=== PATIENT | male | born 2000 | race Native Hawaiian/Other Pacific Islander ===

== ENCOUNTER → 2020-11-11 | Emergency (ER) | payer OTHER ==
[~2020-11-11] VITALS: Ht 172.7 cm; Wt 68.2 kg
[~2020-11-11] MED LIST: CEPHALEXIN500 M1 PO
[2020-11-11 07:15] VITALS: BP 134/84; PULSE 78; TEMP 98.4
== END ==
LOC: COL.ER 07:08
DX: S60.352A Superficial foreign body of left thumb, initial encounter (principal); W45.0XXA Nail entering through skin, initial encounter